=== PATIENT | male | born 1985 | race Caucasian/White ===

== ENCOUNTER 2017-08-30 11:34 | Emergency (ER) | payer MEDICAID ==
[~2017-08-30] VITALS: Ht 182.9 cm; Wt 77.0 kg
[~2017-08-30 11:34] MED LIST: CYCL-1 PO; CYCL-394 PO; DIAZ5TAB PO; HYDR12.5 PO; LURA40TA3 PO; NO HOME MEDS; NYST30CR2 TP; PANT-47 PO; PRED10TA PO
[2017-08-30 11:45] VITALS: BP 137/75
== END 2017-08-30 12:02 ==
LOC: ER 11:35
DX: A15.9 Respiratory tuberculosis unspecified (principal); I10 Essential (primary) hypertension; J45.909 Unspecified asthma, uncomplicated; F12.90 Cannabis use, unspecified, uncomplicated; G89.29 Other chronic pain; Z98.890 Other specified postprocedural states; Z56.0 Unemployment, unspecified; Z91.018 Allergy to other foods; Z79.899 Other long term (current) drug therapy
CPT/HCPCS: 99283; 99285

== ENCOUNTER 2017-08-30 13:50 | Emergency (ER) | payer MEDICAID | END 2017-08-30 15:18 | LOC: ER 13:50 | DX: Z02.89 Encounter for other administrative examinations (principal); L23.7 Allergic contact dermatitis due to plants, except food; F12.90 Cannabis use, unspecified, uncomplicated; I10 Essential (primary) hypertension; J45.909 Unspecified asthma, uncomplicated; G89.29 Other chronic pain; Z98.890 Other specified postprocedural states; Z79.899 Other long term (current) drug therapy; Z56.0 Unemployment, unspecified | CPT/HCPCS: 71046; 99284 ==